=== PATIENT | male | born 1990 | race Caucasian/White ===

== ENCOUNTER 2021-12-27 16:32 | Emergency (ER) | payer OTHER ==
[~2021-12-27] VITALS: Ht 172.7 cm; Wt 95.3 kg
[2021-12-27 16:59] VITALS: BP 130/80
--- NOTE | 2021-12-27 17:30 | NUR ---
NO obvious distress. Encouraged relaxation techniques
[2021-12-27] MEDS ORDERED: IBUP-1957 PO (18:02)
--- NOTE | 2021-12-27 18:25 | NUR ---
Patient discharged to home in stable condition. Written and verbal after care instructions given. Patient verbalizes understanding of instruction.
== END 2021-12-27 18:27 | disposition home or self-care (01) ==
LOC: ER 16:36
DX: G44.209 Tension-type headache, unspecified, not intractable (principal); Z60.2 Problems related to living alone